=== PATIENT | female | born 1970 | race Caucasian/White ===

== ENCOUNTER → 2019-04-17 08:47 | Emergency (ER) | payer SELFPAY ==
[~2019-04-17 08:47] MED LIST: Fluorescein Sodium TOPICAL* 1 MG TEST STRIP OPHTHALMIC ONE; Sulfacetamide 10 % OPTH.SOL LEFT EYE ONE; Tetracaine 0.5% OPTH.SOL 4 ML* 1 DROP BTL BOTH EYES ONE
--- NOTE | 2019-04-17 09:15 | ED ---
Throat Pain/Nasal Congestion - HPI Summary HPI Summary: The patient is a 48 y/o F presenting to [facility] with a chief complaint of sudden onset pain in the left eye after injuring it on a cardboard box this morning. She reports that she had been doing laundry and bent down when she didn't realize that there was a box, and the corner of the box poked her in the left eye. The burning pain is rated 7/10 in severity, and movement of the eye aggravates the pain. She now c/o erythema, blurred vision, photophobia, and watering of the eye. There is a foreign body sensation, and she has used eye drops to no relief of the pain. She denies fever, chills, sore throat, CP, SOB, cough, abdominal pain, N/V, dysuria, hematuria, myalgia, edema, rash, or dizziness. No ophthalmology hx except for lasik in the right eye. Medications include Metformin and Lexapro. Former smoker, no EtOH, no substance use. - History of Current Complaint Chief Complaint: EDEyeProblem Time Seen by Provider: 04/17/19 09:01 Hx Obtained From: Patient Onset/Duration: Sudden Onset, Lasting Hours, Still Present Severity: Moderate Associated Signs And Symptoms: Positive: FB Sensation - Allergies/Home Medications Allergies/Adverse Reactions: Allergies Allergy/AdvReac Type Severity Reaction Status Date / Time erythromycin base Allergy Rash Verified 04/17/19 08:59 Penicillins Allergy Unknown Verified 04/17/19 08:59 Reaction Details Home Medications: Home Medications Escitalopram Oxalate [Lexapro 10 mg] 10 mg PO DAILY 04/17/19 [History Confirmed 04/17/19] Metformin HCl 850 mg PO BID 04/17/19 [History Confirmed 04/17/19] Multivitamin [Once Daily] 1 each PO DAILY 04/17/19 [History Confirmed 04/17/19] PMH/Surg Hx/FS Hx/Imm Hx History: Reports: Other Problems/Disorders - PCOS - Surgical History Surgical History: Yes Surgery Procedure, Year, and Place: lasik on right eye, hysterectomy 2012 Infectious Disease History: No Infectious Disease History: Reports: Traveled Outside the [place] in Last 30 Days - Family History Known Family History: Negative: Cardiac Disease, Hypertension, Diabetes - Social History Alcohol Use: None Hx Substance Use: No Substance Use Type: Reports: None Hx Tobacco Use: No Smoking Status (MU): Never Smoked Tobacco Review of Systems Negative: Fever, Chills Positive: Photophobia, Blurred Vision, Erythema - left eye, Other - watering of the left eye Negative: Sore Throat Negative: Chest Pain Negative: Shortness Of Breath, Cough Negative: Abdominal Pain, Vomiting, Nausea Negative: dysuria, hematuria Negative: Myalgia, Edema Negative: Rash Neurological: Other - NEGATIVE: dizziness All Other Systems Reviewed And Are Negative: Yes Physical Exam - Summary Physical Exam Summary: General: Well appearing, no distress Eyes: Fluorescein uptake over central visual axis, Negative Sidel sign, Eye visualized under slit lamp and the lid was everted, No foreign body Cardiovascular: Skin is well perfused Pulmonary: No respiratory distress, no tachypnea Abdomen: Non-distended Skin: Warm, pink, dry Psych: Normal affect Neuro: A&Ox3 Triage Information Reviewed: Yes Vital Signs On Initial Exam: Initial Vitals Temp Pulse Resp BP Pulse Ox 98.0 F 77 18 148/89 100 04/17/19 08:49 04/17/19 08:49 04/17/19 08:49 04/17/19 08:49 04/17/19 08:49 Vital Signs Reviewed: Yes Diagnostics - Vital Signs Vital Signs Temp Pulse Resp BP Pulse Ox 04/17/19 08:49 98.0 F 77 18 148/89 100 - Laboratory Lab Statement: Any lab studies that have been ordered have been reviewed, and results considered in the medical decision making process. EENT Course/Dx - Course Course Of Treatment: Patient is a 48 y/o F with cc of sudden onset pain in the left eye after bending down and getting poked in the eye by a cardboard box. Additionally c/o erythema, blurred vision, photophobia, and watering of the eye with a foreign body sensation without relief after administered eye drops. No ophthalmology hx except for lasik in the right eye. Left eye was numbed with Tetracaine to view eye to rule out ocular foreign bodies. Fluorescein eye stain used as secondary approach to visualize possible FB using slit lamp with everted eyelid. Sulfacetamide applied to eye to prevent infection of visible corneal abrasion. Physical exam reveals fluorescein uptake over central visual axis, negative Sidel sign, no foreign body. Given the abrasion above the central visual axis and corneal iritis, and with limited access to ophthalmology in [place] where the patient resides, she is given an ophthalmology follow-up with Dr. Cagle at [facility] [place] [facility] today at 1400. Patient understands that this can be a self-pay visit, and she agrees with the plan. She is diagnosed with corneal abrasion and traumatic iritis. - Differential Diagnoses Differential Diagnoses: Other - iritis - Diagnoses Provider Diagnoses: Corneal abrasion, Traumatic iritis Discharge - Sign-Out/Discharge Documenting (check all that apply): Patient Departure - Patient will be discharged home. Patient Received Moderate/Deep Sedation with Procedure: No - Discharge Plan Condition: Improved Disposition: HOME Patient Education Materials: Iritis (ED), Corneal Abrasion (DC) Referrals: [facility] [Outside] - 3 Days Helene Pete MD [Medical Doctor] - 04/17/19 2:00 pm Additional Instructions: Follow up with Dr. Cagle at [facility] [place] [facility] today at 2:00 p.m. Follow up with your primary care provider in 2-3 days. RETURN TO THE EMERGENCY DEPARTMENT FOR ANY NEW OR WORSENING SYMPTOMS. - Billing Disposition and Condition Condition: IMPROVED Disposition: Home - Attestation Statements Document Initiated by Scribe: Yes Documenting Scribe: Marina Roemro Provider For Whom Scribe is Documenting (Include Credential): Dr. Param Lackey MD Scribe Attestation: Marina Elder scribed for Dr. Param Lackey MD on 04/17/19 at 202. Status of Scribe Document: Ready
[2019-04-17 10:15] VITALS: BP 0/0
== END | disposition home or self-care (01) ==
LOC: ED 08:47
DX: S05.02XA Injury of conjunctiva and corneal abrasion without foreign body, left eye, initial encounter (principal); H20.00 Unspecified acute and subacute iridocyclitis; W22.8XXA Striking against or struck by other objects, initial encounter; Y92.9 Unspecified place or not applicable; Z88.1 Allergy status to other antibiotic agents; Z88.0 Allergy status to penicillin; Z79.84 Long term (current) use of oral hypoglycemic drugs; Z79.899 Other long term (current) drug therapy; Z87.891 Personal history of nicotine dependence
CPT/HCPCS: 99282; A9270-GY